=== PATIENT | male | born 2000 | race Caucasian/White ===

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

== ENCOUNTER 2019-10-29 12:00 | Emergency (ER) | payer MEDICAID ==
[~2019-10-29] VITALS: Ht 180.3 cm; Wt 93.0 kg
[2019-10-29] MEDS ORDERED: NAPROXEN 250MG TABLET PO ONE (12:45)
[2019-10-29] MEDS ORDERED: NAPROXEN 250MG TABLET PO SCH (13:00)
[2019-10-29 13:13] VITALS: BP 148/86
== END 2019-10-29 13:15 | disposition home or self-care (01) ==
LOC: ER 12:21
DX: M54.2 Cervicalgia (principal); F12.90 Cannabis use, unspecified, uncomplicated
CPT/HCPCS: 99282

== ENCOUNTER 2019-11-02 10:13 | Emergency (ER) | payer MEDICAID ==
[~2019-11-02] VITALS: Ht 180.3 cm; Wt 90.7 kg
[2019-11-02 10:21] VITALS: BP 137/81
== END 2019-11-02 10:50 | disposition home or self-care (01) ==
LOC: ER 10:26
DX: S16.1XXA Strain of muscle, fascia and tendon at neck level, initial encounter (principal); X50.1XXA Overexertion from prolonged static or awkward postures, initial encounter; Y93.89 Activity, other specified; Y92.89 Other specified places as the place of occurrence of the external cause
CPT/HCPCS: 99282

== ENCOUNTER 2019-11-06 13:04 | Emergency (ER) | payer MEDICAID ==
[~2019-11-06] VITALS: Ht 180.3 cm; Wt 91.0 kg
[2019-11-06 15:37] VITALS: BP 128/76
== END 2019-11-06 15:38 | disposition home or self-care (01) ==
LOC: ER 13:04
DX: M54.2 Cervicalgia (principal); F12.10 Cannabis abuse, uncomplicated
CPT/HCPCS: 99281